=== PATIENT | male | born 1970 | race Caucasian/White ===

== ENCOUNTER 2025-08-12 23:05 | Emergency (ER) | payer OTHER, SELFPAY ==
[2025-08-12 23:05] VITALS: BMI 38.5
[2025-08-12 23:12] VITALS: BP 186/104
[2025-08-12 23:29] LABS: Hematocrit 44.7 % (39.0-52.0); Hemoglobin 15.1 g/dL (13.0-18.0); Mean Corp Hgb Conc. 33.8 g/dL (33.0-37.0); Mean Corpuscular Volume 87.1 fL (80.0-94.0); Nucleated Red Blood Cells % 0 % (-); Platelet Count 228 10^3/uL (130-400); Red Cell Dist. Width 12.8 % (11.5-14.5)
[2025-08-12 23:35] VITALS: BP 179/108
[2025-08-13] VITALS: BP 165/98
[2025-08-13 00:04] LABS: Troponin I 0.018 ng/ml
[2025-08-13] MEDS: DILAUDID 0.5 MG IV (00:15)
[2025-08-13] MEDS: NSS 500 IV (00:15)
[2025-08-13] MEDS: PROTONIX IV 40 MG IV (00:15)
--- NOTE | 2025-08-13 00:27 | ED.GENMED ---
History of Present Illness
General
Chief Complaint: Chest Pain
Source: patient and spouse
Exam Limitations: none
Time Seen by Provider: 08/12/25 23:55
History of Present Illness
History of Present Illness:
Patient with history of asthma and type II diabetes, presents to ED secondary to sudden onset of upper abdominal pain, while he was at home watching TV. Abdominal pain described as sharp/pressure, across his upper abdomen and chest, worse when
laying down. Denies trauma. Denies nausea or vomiting. Denies diarrhea. Denies shortness of breath. Denies previous history of similar symptoms. Patient reports having had prior ribs for dinner, and approximately 5 hours prior to onset of
symptoms. Initially, patient reports having had shortness of breath, for which he uses a nebulizer as needed. Shortness of breath has resolved completely.
Review of Systems
Review of Systems
Allergies reviewed?: Yes
All Other Systems: ROS reviewed and negative except as documented in HPI and ROS
Constitutional: Reports no symptoms
EENT: Reports no symptoms
Respiratory: Reports trouble breathing; Denies cough
Cardiac: Reports chest pain; Denies palpitations or syncope
ABD/GI: Reports abdominal pain; Denies vomiting or diarrhea
Musculoskeletal: Reports no symptoms
Skin: Reports no symptoms
Neurological: Reports no symptoms
Phy Exam
Physical Exam
Physical Exam:
Physical Exam
General: mild respiratory distress, not acutely ill. afebrile
Head: nc/at. eomi
Neck: supple. normal range of motion
Heart: s1/s2 regular rate and rhythm
Lungs: mild respiratory distress. diminished breath sounds bilaterally
Abdomen: normal bowel sounds. no distention. mild epigastric/RUQ tenderness to palpation
Neuro: alert and oriented x 3. no focal neurological deficits
Skin: no rash
Psychiatric: well kept. interactive and cooperative
Extremities: no edema. no calf tenderness.
Scores
Heart Score for Chest Pain Patients
STEMI patient?: Not applicable
Course
Orders/Labs/Results
Orders:
Orders
08/12/25 23:06
EKG [Electrocardiogram (*1)] Urgent
Reason for Study: Chest Pain
EKG- Treatment ONCE
08/12/25 23:16
Cardiac Monitoring- Treatment ONCE
IV Insert/Care/Rem.- Treatment PRN
Pulse Ox/spot Check [RESP] Urgent
Quantity: 1
Special Instructions: ON ROOM AIR
08/12/25 23:22
Complete Blood Count/With Diff Urgent
Troponin I Urgent
08/13/25 00:04
Comprehensive Metabolic Panel Urgent
Comment: REDRAW
Lipase Urgent
Comment: ADDED
08/13/25 00:09
Add On- LAB Urgent
Tests Added?: lipase
HYDROmorphone [Dilaudid] 0.5 mg IV NOW STA
Pantoprazole [Protonix IV] 40 mg IV NOW STA
US Abdomen Complete/Upper Urgent
Comment:
Reason For Exam: RUQ/epigastric pain
08/13/25 00:10
0.9% Sodium Chloride 500 ml [Nss] 500 ml IV BOLUS
08/13/25 01:57
Oxycodone/Acetaminophen [Percocet 5/325] 1 tablet PO NOW STA
Abnormal Lab Results
08/12/25 08/13/25
23:22 00:04
Absolute Monos (auto) 0.7 H 10^3/uL
(0.1-0.6)
Sodium 134 L mmol/L
(135-145)
Carbon Dioxide 31 H mmol/L
(22-30)
Glucose 141 H mg/dl
(70-99)
08/12/25 23:22
08/13/25 00:04
Vital Signs
Initial and Last Documented VS:
Initial Vital Signs
Temp Pulse Resp BP Pulse Ox
97.7 F 71 24 186/104 96
08/12/25 23:12 08/12/25 23:12 08/12/25 23:12 08/12/25 23:12 08/12/25 23:12
Last Documented Vital Signs
Temp Pulse Resp BP Pulse Ox
97.7 F 66 13 165/98 96
08/12/25 23:12 08/13/25 01:00 08/13/25 01:00 08/13/25 00:00 08/13/25 01:00
MDM/Problems Addressed
MDM/Problems Addressed:
History, exam, and ultrasound consistent with biliary colic. Patient reports significant improvement symptoms after treatment. Repeat abdominal exam: Soft and nontender. Blood work within normal limits. Patient will be discharged in stable
condition, to the care of his , with referral to surgery for an outpatient consultation. Return precaution provided, i.e. fever/worsening pain/vomiting.
*Pulse Oximetry
SaO2: 98
Oxygen Mode of Delivery: Room air
Patient hypoxic: no
*Critical Care Note
Total Time (30-74mins, 75-104mins- exclusive of procedures): Not Applicable
ED Attending Note
-
Portions of this chart may have been created with voice recognition software.� Occasional wrong word or��sound alike� substitutions may have occurred due to the inherent limitations of voice recognition software.
Discharge Plan
Departure
Patient Disposition: Home (Routine Discharge)
Date of Disposition: 08/13/25
Time of Disposition: 01:58
Patient with high blood pressure during this ER visit?: Yes
Condition: Fair
Discharge Problem:
Biliary colic
Instructions: [place] diet, Gallstones - ED (DC)
Prescriptions:
New
oxycodone-acetaminophen [Percocet] 5-325 mg Tablet
1 tab PO Q6HPRN PRN (Reason: pain) Qty: 12 0RF
No Action
albuterol sulfate 90 mcg/actuation Hfa Aerosol Inhaler
2 puff INHALATION Q6HPRN PRN (Reason: shortness of breath)
fluticasone propion-salmeterol [AirDuo RespiClick] 232-14 mcg/actuation Aerosol Powdr Breath Activated
1 inh INHALATION R DAILY
Patient Comments:
07/30/22: Pt states he has been out of Airduo RespiClick for ~1 week and usually uses it once daily, however it is prescribed as twice daily.
ibuprofen 200 mg capsule
600 mg PO TID Qty: 60 0RF
Rx Instructions:
Take ibuprofen 600 mg (three 200 mg tablets) twice a day with food for 1 month
colchicine 0.6 mg capsule
0.6 mg PO DAILY Qty: 30 0RF
Rx Instructions:
Take colchicine 0.6 mg once a day for 1 month
Referrals:
Eliud London DO [Family Provider, Family Practice]
Ayan Patterson MD [Active, Surgical]
Activity Restrictions/Additional Instructions:
As discussed, please follow-up with your primary care physician and/or referred general surgeon for reevaluation. Please consider return to ED with worsening symptoms, i.e. fever/worsening pain/vomiting. Your prescription has been sent
electronically to [facility] pharmacy in [place].
Interventions
Interventions:
*Risk Screen - Suicide Last Done: 08/12/25 23:12
*General Assessment Last Done: 08/12/25 23:12
*Neglect/Abuse Screening Last Done: 08/12/25 23:12
*ED- Fall Risk Assessment Last Done: 08/13/25 02:06
*ED COVID-19 Vaccine History Last Done: 08/13/25 00:03
*ED Influenza Vaccine History Last Done: 08/13/25 00:03
*Nursing Disposition Last Done: 08/13/25 02:06
ED- Cardiac Assessment Last Done: 08/13/25 00:03
Discharge Date and Time
Discharge Date/Time: 08/13/25 02:07
Print Language: THAI
[2025-08-13 00:47] LABS: ALT (SGPT) 43 U/L (0-50); AST (SGOT) 30 U/L (17-59); Albumin 4.5 g/dl (3.5-5.0); Alkaline Phosphatase 48 U/L (38-126); Blood Urea Nitrogen 20 mg/dl (9-20); Calcium 9.3 mg/dl (8.4-10.2); Carbon Dioxide 31 mmol/L (22-30); Chloride 99 mmol/L (98-107); Estimated Creatinine Clearance > 125 ml/min; Glucose 141 mg/dl (70-99); Lipase 95 U/L (23-300); Potassium 4.0 mmol/L (3.5-5.1); Sodium 134 mmol/L (135-145); Total Protein 7.5 g/dl (6.3-8.2); eGFR > 60.00
[2025-08-13] MEDS: PERCOCET 5/325 1 TABLET PO (02:02)
== END 2025-08-13 02:07 | disposition home or self-care (01) ==
LOC: EMR 23:05
PROVIDERS: Emergency Medicine; EMERGENCY PHYSICIAN Emergency Medicine; FAMILY PHYSICIAN Family Medicine
DX: K80.20 Calculus of gallbladder without cholecystitis without obstruction (principal); R03.0 Elevated blood-pressure reading, without diagnosis of hypertension; E11.9 Type 2 diabetes mellitus without complications; J45.909 Unspecified asthma, uncomplicated
CPT/HCPCS: 99284; 96374; 96375; 96361; 76700; 80053; 83690; 84484; 85025; 93005